=== PATIENT | female | born 1955 | race Caucasian/White ===

== ENCOUNTER 2019-09-09 09:44 | Emergency (ER) | payer OTHER ==
[~2019-09-09] VITALS: Ht 162.6 cm; Wt 120.2 kg
[2019-09-09 09:58] LABS: Source, Urine Clean Catch
[2019-09-09 10:03] LABS: Bilirubin, Urine Neg (Neg); Blood, Urine Neg (Neg); Glucose Qualitative, Urine Neg (Neg); Ketones, Urine Neg (Neg); Leukocyte Esterase, Urine 2+ (Neg); Nitrite, Urine Neg (Neg); Protein, Urine Neg (Neg); Urobilinogen, Urine NORM (Normal)
[2019-09-09 10:11] LABS: Appearance, Urine Clear (Clear); Color, Urine Yellow (P-Yellow)
[2019-09-09 10:12] LABS: Bacteria Rare /hpf; Red Blood Cells, Urine 0-2 /hpf (0-2); Squamous Epithelial Cells Few /hpf (Few)
[2019-09-09 11:27] LABS: BASOPHILS ABSOLUTE AUTO 0.05 K/mm3 (0.00-0.23); BASOPHILS PERCENT AUTO 1 % (0-2); EOSINOPHILS ABSOLUTE AUTO 0.04 K/mm3 (0.00-0.68); EOSINOPHILS PERCENT AUTO 1 % (0-6); Hematocrit 42.9 % (33.0-51.0); Hemoglobin 13.7 g/dL (11.5-16.0); IMMATURE GRAN ABSOLUTE AUTO 0.02 K/mm3 (0.00-0.10); IMMATURE GRAN PERCENT AUTO 0 % (0-1); LYMPHOCYTES ABSOLUTE AUTO 0.86 K/mm3 (0.84-5.20); LYMPHOCYTES PERCENT AUTO 10 % (21-46); MONOCYTES PERCENT AUTO 5 % (4-13); Mean Corpuscular HGB 29.9 pg (26.0-34.0); Mean Corpuscular HGB Conc 31.9 g/dL (31.5-36.5); Mean Corpuscular Volume 94 fL (80-100); Mean Platelet Volume 9.7 fL (9.1-12.4); NEUTROPHILS ABSOLUTE AUTO 7.49 K/mm3 (1.96-9.15); NEUTROPHILS PERCENT AUTO 85 % (41-73); Platelet Count 248 K/mm3 (150-400); RDW Coefficient Variation 13.6 % (11.7-14.2); RDW Standard Deviation 46.7 fL (35.1-46.3); Red Blood Cell Count 4.58 M/mm3 (3.80-5.20); White Blood Cell Count 8.86 K/mm3 (4.00-11.30)
[2019-09-09 11:51] LABS: Alanine Aminotransfer (ALT/SGP 24 U/L (12-78); Albumin, Blood 3.5 g/dL (3.4-5.0); Albumin/Globulin Ratio 0.9 (0.8-1.8); Alk Phos 103 U/L (50-136); Anion Gap 4 mmol/L (6-16); Aspartate Aminotrans (AST/SGOT 14 U/L (12-37); Bilirubin, Total 0.4 mg/dL (0.1-1.0); Blood Urea Nitrogen 11 mg/dL (8-24); Bun/Creatinine Ratio 13.4 (12.0-20.0); CO2, Blood 30 mmol/L (21-32); Calcium, Blood 8.8 mg/dL (8.5-10.1); Chloride, Blood 109 mmol/L (98-108); Creatinine, Blood 0.82 mg/dL (0.40-1.00); Globulin, Blood 3.7 g/dL (2.2-4.0); Glomerular Filtration Rate >60 (60-); Glucose, Blood 161 mg/dL (70-99); Sodium, Blood 143 mmol/L (136-145); Total Protein, Blood 7.2 g/dL (6.4-8.2)
[2019-09-09] MEDS ORDERED: Humulin N100 UNIT/1 SC (12:16)
[2019-09-09] MEDS ORDERED: INSULIN ISOPHANE SC ×2 (12:19→12:20)
[2019-09-09] MEDS ORDERED: NOVOLOG FL100 UNIT/1 SC (12:22)
[2019-09-09] MEDS ORDERED: GLUCOSE BITS1 GM PO (12:23)
[2019-09-09] MEDS ORDERED: THERA1 EACH PO (12:24)
[2019-09-09] MEDS ORDERED: Actos45 MG PO (12:25)
[2019-09-09] MEDS ORDERED: Vitamin D2000 UNIT PO (12:25)
[2019-09-09] MEDS ORDERED: MELA3 PO (12:26)
[2019-09-09] MEDS ORDERED: Nystatin15 GM TOP (12:28)
[2019-09-09] MEDS ORDERED: METF500C PO (12:29)
[2019-09-09] MEDS ORDERED: Macrodantin100 MG PO (12:47)
[2019-09-14] MEDS ORDERED: Humulin N100 UNIT/1 SC (12:08)
[2019-09-14] MEDS ORDERED: METO25ER PO (12:09)
== END 2019-09-09 13:03 | disposition home or self-care (01) ==
LOC: ER 09:44
PROVIDERS: Emergency Medicine
DX: N39.0 Urinary tract infection, site not specified (principal); E11.649 Type 2 diabetes mellitus with hypoglycemia without coma; Z87.891 Personal history of nicotine dependence; Z88.8 Allergy status to other drugs, medicaments and biological substances; Z88.1 Allergy status to other antibiotic agents; Z79.4 Long term (current) use of insulin
CPT/HCPCS: 74177; 80053; 81001; 83690; 85025; 87077; 87086; 87186; 99284-25; Q9967

== ENCOUNTER 2023-08-07 12:53 | Day surgery (SDC) | payer OTHER ==
[~2023-08-07] VITALS: Ht 165.1 cm; Wt 139.4 kg
[~2023-08-07 12:53] MED LIST: Actos45 MG PO; Bactrim Ds Tab1 EACH PO; GLUCOSE BITS1 GM PO; Humulin N100 UNIT/1 SC; INSULIN ISOPHANE SC; MELA3 PO; METF500C PO; METO25ER PO; Macrodantin100 MG PO; NOVOLOG FL100 UNIT/1 SC; Nystatin15 GM TOP; THERA1 EACH PO; Vitamin D2000 UNIT PO
[2023-08-07] MEDS ORDERED: TRESIBA FL100 UNIT/2 SC (13:44)
[2023-08-07] MEDS ORDERED: ATOR10 PO (13:45)
[2023-08-07] MEDS ORDERED: JARDIANCE25 MG PO (13:45)
--- NOTE | 2023-08-07 14:04 | NUR ---
08/07/23 1404 Natalie Yu 1342 KAREL 1346
[2023-08-07 14:40] VITALS: BP 170/80
--- NOTE | 2023-08-07 14:55 | NUR ---
08/07/23 1455 Val Palomino IV OUT, WNL, PATIENT TOLERATED WELL
[2023-08-11] MEDS ORDERED: MECL12.5 PO (01:38)
[2023-08-11] MEDS ORDERED: ALMACONE SUSPE355 ML PO (01:55)
[2023-08-11] MEDS ORDERED: FAMO20 PO (01:56)
== END 2023-08-07 15:13 | disposition home or self-care (01) ==
LOC: ORSCSDS 12:53
PROVIDERS: Ophthalmology
PROC: 08RJ3JZ Replacement of Right Lens with Synthetic Substitute, Percutaneous Approach (ICD-10-PCS; principal; 2023-08-07 14:00)
DX: E11.36 Type 2 diabetes mellitus with diabetic cataract (principal); H25.11 Age-related nuclear cataract, right eye; I10 Essential (primary) hypertension; J44.9 Chronic obstructive pulmonary disease, unspecified; G47.33 Obstructive sleep apnea (adult) (pediatric); E66.9 Obesity, unspecified; Z68.43 Body mass index [BMI] 50.0-59.9, adult; Z79.82 Long term (current) use of aspirin; Z79.4 Long term (current) use of insulin; Z79.899 Other long term (current) drug therapy
CPT/HCPCS: 82947; J2250; J3010; J3301; J7040; V2632

== ENCOUNTER 2023-08-14 12:29 | Day surgery (SDC) | payer OTHER ==
[~2023-08-14] VITALS: Ht 165.1 cm; Wt 138.9 kg
[~2023-08-14 12:29] MED LIST changes: +ALMACONE SUSPE355 ML PO; +ATOR10 PO; +FAMO20 PO; +JARDIANCE25 MG PO; +MECL12.5 PO; +TRESIBA FL100 UNIT/2 SC
[2023-08-14 13:53] VITALS: BP 139/80
--- NOTE | 2023-08-14 14:17 | NUR ---
08/14/23 1417 Mikhail Arreola IV REMOVED INTACT. SITE WNL.
== END 2023-08-14 14:09 | disposition home or self-care (01) ==
LOC: ORSCSDS 12:29
PROVIDERS: Ophthalmology
PROC: 08RK3JZ Replacement of Left Lens with Synthetic Substitute, Percutaneous Approach (ICD-10-PCS; principal; 2023-08-14 14:00)
DX: E11.36 Type 2 diabetes mellitus with diabetic cataract (principal); H25.12 Age-related nuclear cataract, left eye; Z96.1 Presence of intraocular lens; I10 Essential (primary) hypertension; G47.33 Obstructive sleep apnea (adult) (pediatric); J44.9 Chronic obstructive pulmonary disease, unspecified; Z79.82 Long term (current) use of aspirin; Z79.4 Long term (current) use of insulin; Z79.899 Other long term (current) drug therapy
CPT/HCPCS: 82947; J2250; J3010; J3301; J7040; V2632

== ENCOUNTER 2023-10-17 07:07 | Day surgery (SDC) | payer OTHER ==
[~2023-10-17] VITALS: Ht 162.6 cm; Wt 137.0 kg
[~2023-10-17 07:07] MED LIST changes: +AMLO5 PO; +ASPI81CH PO; +Acetaminophen650 M1; +CYCL10; +Calcium Carbon500 MG PO; +DUO-NEB; +FERRO-TIME325 MG; +OCUFLOX511 BOTHEARS; +PIOG15 PO; +Vitamin D1000 UNI1 PO
[2023-10-17 07:36] VITALS: BP 147/77
[2023-10-17] MEDS ORDERED: NOVOLIN N100 UNIT/2 SQ (07:45)
--- NOTE | 2023-10-17 08:01 | NUR ---
PT TO SDS VIA WC. PT STATES WC IS FOR LONG DISTANCES. PT IS ABLE TO WALK INDEPENDENTLY WITH USE OF CANE. History, Chart, Medications and Allergies reviewed before start of procedure. Lungs clear T/O to Auscultation. Patient confirms NPO status and agrees with scheduled surgery. Pre-Op teaching done. Pt verbalizes understanding. Patient States Post-Procedure ride home has been arranged.
--- NOTE | 2023-10-17 09:06 | NUR ---
10/17/23 0906 Cecilia Rodriguez MONITOR INTACT WITH CONTINUOUS PULSE OXIMETRY, CONTINUOUS END TITAL CO2, AND INTERMITTENT BLOOD PRESSURE. PROVIDING MAC.
[2023-10-17 09:35] VITALS: BP 96/55
[2023-10-17 09:44] VITALS: BP 100/68
[2023-10-17 10:00] VITALS: BP 126/76
--- NOTE | 2023-10-17 10:15 | NUR ---
DISCHARGE NOTE PT A&OX4, BREATHING RA, CHATTING C STAFF, NO COMPLAINTS. PT TOLERATING PO FLUIDS. VSS. PT ABLE TO DRESS SELF. Discharge instructions reviewed with patient. Patient verbalizes understanding. Copy given to patient to take home.ABDOMEN SOFT AND NON-TENDER. Discharged via wheelchair to private car for ride home.
== END 2023-10-17 10:15 | disposition home or self-care (01) ==
LOC: ORSCMMR 07:07 → ORD 09:00 → ORSCMMR 09:00
PROVIDERS: Surgery
PROC: 0DBN8ZX Excision of Sigmoid Colon, Via Natural or Artificial Opening Endoscopic, Diagnostic (ICD-10-PCS; principal; 2023-10-17 09:00)
DX: Z12.11 Encounter for screening for malignant neoplasm of colon (principal); D12.5 Benign neoplasm of sigmoid colon; J45.909 Unspecified asthma, uncomplicated; E11.9 Type 2 diabetes mellitus without complications; I10 Essential (primary) hypertension; K21.9 Gastro-esophageal reflux disease without esophagitis; E78.5 Hyperlipidemia, unspecified; G47.33 Obstructive sleep apnea (adult) (pediatric); E66.9 Obesity, unspecified; Z68.43 Body mass index [BMI] 50.0-59.9, adult; E66.01 Morbid (severe) obesity due to excess calories; Z79.82 Long term (current) use of aspirin; Z79.899 Other long term (current) drug therapy
CPT/HCPCS: 82947; 88305; J2704; J7120

== ENCOUNTER 2025-05-03 10:31 | Emergency (ER) | payer OTHER ==
[~2025-05-03] VITALS: Ht 165.1 cm; Wt 137.9 kg
[~2025-05-03 10:31] MED LIST changes: +ALBU90OI INH; +BUPR150ER PO; +CALCIUM 600 +1 EA11 PO; +HYDHCL25 PO; +NOVOLIN N100 UNIT/2 SQ; +NOVOLOG FL100 UNIT/3 SC
[2025-05-03] MEDS ORDERED: Morphine Sulfate 4 MG/1 ML Injection IV ONE (10:50)
[2025-05-03 11:33] LABS: BASOPHILS ABSOLUTE AUTO 0.07 K/mm3 (0.00-0.23); BASOPHILS PERCENT AUTO 1 % (0-2); EOSINOPHILS ABSOLUTE AUTO 0.09 K/mm3 (0.00-0.68); EOSINOPHILS PERCENT AUTO 1 % (0-6); Hemoglobin 15.1 g/dL (11.5-16.0); IMMATURE GRAN ABSOLUTE AUTO 0.02 K/mm3 (0.00-0.10); IMMATURE GRAN PERCENT AUTO 0 % (0-1); LYMPHOCYTES ABSOLUTE AUTO 1.39 K/mm3 (0.84-5.20); LYMPHOCYTES PERCENT AUTO 18 % (21-46); MONOCYTES ABSOLUTE AUTO 0.35 K/mm3 (0.16-1.47); MONOCYTES PERCENT AUTO 5 % (4-13); Mean Corpuscular HGB 29.8 pg (26.0-34.0); Mean Corpuscular HGB Conc 33.6 g/dL (31.5-36.5); Mean Corpuscular Volume 89 fL (80-100); NEUTROPHILS PERCENT AUTO 75 % (41-73); RDW Coefficient Variation 13.2 % (11.7-14.2); RDW Standard Deviation 42.5 fL (35.1-46.3); Red Blood Cell Count 5.06 M/mm3 (3.80-5.20); White Blood Cell Count 7.82 K/mm3 (4.00-11.30)
[2025-05-03 11:50] LABS: Albumin, Blood 3.1 g/dL (3.4-5.0); Albumin/Globulin Ratio 0.8 (0.8-1.8); Bun/Creatinine Ratio 20.7 (12.0-20.0); Calcium, Blood 8.5 mg/dL (8.5-10.1); Creatinine, Blood 0.82 mg/dL (0.40-1.00); Globulin, Blood 3.9 g/dL (2.2-4.0); Potassium, Blood 4.2 mmol/L (3.5-5.5)
[2025-05-03] MEDS ORDERED: VITAMIN D5000 UNIT PO (12:24)
[2025-05-03] MEDS ORDERED: AMLO10 PO (12:25)
[2025-05-03] MEDS ORDERED: SEMAGLUTID0.5 MG/0.1 SC (12:26)
[2025-05-03 12:56] LABS: Mean Platelet Volume 9.4 fL (9.1-12.4); Platelet Count 252 K/mm3 (150-400)
[2025-05-03 16:00] VITALS: BP 127/71
== END 2025-05-03 16:26 | disposition home or self-care (01) ==
LOC: ER 10:31
PROVIDERS: Emergency Medicine
DX: R07.2 Precordial pain (principal); E11.9 Type 2 diabetes mellitus without complications; I10 Essential (primary) hypertension; Z87.891 Personal history of nicotine dependence; Z88.1 Allergy status to other antibiotic agents; Z88.8 Allergy status to other drugs, medicaments and biological substances; Z79.84 Long term (current) use of oral hypoglycemic drugs; Z79.4 Long term (current) use of insulin; Z79.82 Long term (current) use of aspirin; Z79.899 Other long term (current) drug therapy
CPT/HCPCS: 71045; 80053; 84484; 85025; 85049; 85379; 93005; 93010; 96374; 99285-25; J2270

== ENCOUNTER 2025-10-04 20:57 | Emergency (ER) | payer OTHER ==
[~2025-10-04] VITALS: Ht 162.6 cm; Wt 90.7 kg
[~2025-10-04 20:57] MED LIST changes: +AMLO10 PO; +SEMAGLUTID0.5 MG/0.1 SC; +VITAMIN D5000 UNIT PO
[2025-10-04 21:08] VITALS: BP 161/100
== END 2025-10-04 21:31 | disposition home or self-care (01) ==
LOC: ER 20:57
DX: S91.21 Laceration without foreign body of toe with damage to nail (principal); E11.9 Type 2 diabetes mellitus without complications; I10 Essential (primary) hypertension; Z88.1 Allergy status to other antibiotic agents; Z88.8 Allergy status to other drugs, medicaments and biological substances; Z79.4 Long term (current) use of insulin; Z79.84 Long term (current) use of oral hypoglycemic drugs; Z79.85 Long-term (current) use of injectable non-insulin antidiabetic drugs; Z79.82 Long term (current) use of aspirin; Z79.899 Other long term (current) drug therapy; Z87.891 Personal history of nicotine dependence; W26.8XXA Contact with other sharp object(s), not elsewhere classified, initial encounter
CPT/HCPCS: 90471; 90702; 90714; 90715; 99282-25